=== PATIENT | male | born 1955 | race Caucasian/White ===

== ENCOUNTER 2021-08-28 14:55 | Outpatient (CLI) | payer OTHER | END 2021-08-28 14:56 | disposition home or self-care (01) | LOC: CSHCT 14:55 | PROVIDERS: ATTEND Family Medicine | DX: Z12.2 Encounter for screening for malignant neoplasm of respiratory organs (principal); Z87.891 Personal history of nicotine dependence; I25.10 Atherosclerotic heart disease of native coronary artery without angina pectoris; I25.84 Coronary atherosclerosis due to calcified coronary lesion; I70.0 Atherosclerosis of aorta | CPT/HCPCS: 71271 ==